=== PATIENT | female | born 1965 ===

== ENCOUNTER 2018-04-19 11:24 | Day surgery (SDC) | payer BC ==
[~2018-04-19 11:24] MED LIST: ACETAMINOPHEN 1,000 MG/100 ML BTL IV ONE
[2018-04-19] MEDS ORDERED: PROPOFOL 10 MG/ML VIAL IV ONE (11:25)
[2018-04-19] MEDS ORDERED: MIDAZOLAM HCL 2MG/2ML VIAL IV ONE (11:25)
[2018-04-19] MEDS ORDERED: SEVOFLURANE 250 ML INH ONE (11:25)
[2018-04-19] MEDS ORDERED: KETOROLAC 30 MG/ML VIAL IVP ONE (11:25)
[2018-04-19] MEDS ORDERED: FENTANYL PF 100MCG/2ML VIAL IV ONE (11:25)
[2018-04-19] MEDS ORDERED: DEXAMETHASONE 4 MG/ML 1ML VIAL IVP ONE (11:25)
[2018-04-19] MEDS ORDERED: ONDANSETRON HCL IV 4 MG/2 ML VIAL IVP ONE (11:25)
[2018-04-19] MEDS ORDERED: BUPIVACAINE 0.25% W/EPI MPF 30ML VIAL IVP ONE (11:25)
--- NOTE | 2018-04-20 01:17 | Operative Note ---
DATE OF SURGERY: 04/19/2018 SURGEON: KAYLA CRAIN D.O. REFERRING PHYSICIAN: NORMAN FELICIANO D.O. PREOPERATIVE DIAGNOSES: TORN MEDIAL MENISCUS RIGHT KNEE. 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 OPERATIVE PROCEDURE: ARTHROSCOPIC CHONDROPLASTY MEDIAL FEMORAL CONDYLE AND PATELLA RIGHT KNEE. DESCRIPTION: This 52-year-old female was taken to the Operating Room and placed in the supine position on the operating room table, where general anesthesia was induced. The right lower extremity was elevated. It was exsanguinated and the tourniquet inflated to 300 mmHg. Arthroscopic knee smith applied. Right knee prepped with Hibiclens and draped in the usual sterile fashion. 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 Through an inferior medial portal, chondroplasty was performed to stabilize the articular cartilage there. The trochlea, however, appeared to be normal. The medial compartment was entered and probing of the medial meniscus did not reveal any pathology. There appeared to be a lesion in the center of the weightbearing surface. It appeared to be relatively small. However, after probing, we found that this was actually large flaps of loose articular cartilage and chondroplasty was performed to remove the loose and unstable fragments. It was then re-probed and confirmed to be stable. We then directed our attention to the intercondylar notch and it was found to be normal. The lateral compartment was entered and probing of the lateral compartment meniscus and articular cartilage did not reveal any abnormalities. The joint was copiously irrigated with lactated ringer solution. It was suctioned. The instruments were removed. The portals were infiltrated with 0.25% Marcaine with Epinephrine. Sterile dressings applied, tourniquet and knee smith released, and the patient taken to the Recovery Room in satisfactory condition. GROSS PATHOLOGY: This patient demonstrated what appeared to be a relatively small articular cartilage lesion just slightly lateral to the midline of the medial femoral condyle in the center of the weightbearing surface. However, once this was probed, we found that this lesion was rather extensive and found to cover approximately two-thirds of the articulating surface of the medial femoral condyle with grade 2 changes. The patella also demonstrated grade 2 changes on the medial facet and oblique facet. No meniscal lesions were identified. JOB NUMBER: [id number] [facility]
== END 2018-04-19 15:25 | disposition home or self-care (01) ==
LOC: SUR 11:24
PROVIDERS: ATTEND Orthopaedic Surgery
DX: M22.41 Chondromalacia patellae, right knee (principal); M94.261 Chondromalacia, right knee
CPT/HCPCS: 29877; 01400; J1885; J2405; J3010